=== PATIENT | male | born 1980 | race Caucasian/White ===

== ENCOUNTER 2019-10-04 20:00 | Outpatient (CLI) | payer OTHER, SELFPAY | END 2019-10-04 20:01 | disposition home or self-care (01) | LOC: SLEEP 10-05 10:09 | PROVIDERS: PCP Emergency Medicine Emergency Medical Services; Visit Provider Emergency Medicine Emergency Medical Services | DX: G47.33 Obstructive sleep apnea (adult) (pediatric) (principal) | CPT/HCPCS: 95810; 95811 ==

== ENCOUNTER → 2019-12-17 13:30 | Outpatient (BNVA) | payer OTHER, SELFPAY | PROVIDERS: PCP Emergency Medicine Emergency Medical Services; Visit Provider Nurse Practitioner Family | DX: Z11.8 Encounter for screening for other infectious and parasitic diseases (principal); Z20.828 Contact with and (suspected) exposure to other viral communicable diseases | CPT/HCPCS: 87635 ==

== ENCOUNTER 2022-08-26 09:36 | Emergency (ER) | payer OTHER, SELFPAY ==
[2022-08-26 10:20] VITALS: BP 135/94; PULSE 83; RESP 17; TEMP 36.5; O2SAT 97; BMI 41.1
--- NOTE | 2022-08-26 10:31 | XR_ITS ---
WS: [id number] Left hip, 2 views, AP pelvis, 08/26/2022 Clinical Data: hip pain Comparison: AP pelvis, 04/17/2018. Findings: No fractures or dislocations are seen. The left hip shows no erosion, sclerosis, narrowing or fragmen tation of the left femoral head. There is a small left acetabular lip. The right hip shows no erosion , sclerosis, narrowing or fragmentation of the right femoral head. There is a right acetabular lip. T he soft tissues are not remarkable. The adjacent pelvis is normal. XR/XR hip LT 2-3V wo/w pel* [id number] Impression: Negative pelvis and left hip. Tonnis classification: grade 1: sclerosis of femoral head and acetabulum or sli ght joint space narrowing or slight lipping at joint margins of both hips
--- NOTE | 2022-08-26 10:31 | XR_ITS ---
WS: [id number] Lumbar spine, 2 views, 08/26/2022 Clinical Data: back pain Comparison: None. Findings: No compression fractures or subluxation is seen. No disc space narrowing is seen. The transverse proc esses and SI joints are normal. There are clips in the right upper quadrant from a cholecystectomy. XR/XR lumbar spine 2-3V* [id number] Impression: Negative lumbar spine.
--- NOTE | 2022-08-26 10:32 | W.ED.EXTPRO ---
Documented by User: Haylie Howell, DERMATOLOGY SALES REPRESENTATIVE-C 08/26/22 12:27 HPI - Extremity Problem General: Chief complaint: Extremity Problem,Nontraumatic Stated complaint: Left hip and back pain Time Seen by Provider: 08/26/22 09:51 History of Present Illness: Patient reports that he started having low back pain and left hip pain on Tuesday. He reports he did not have any injuries he was not doing anything when it started. He reports it is very difficult to bend get up from a seated position or walk. He reports that his back is hurting significantly and he is having some numbness running down his upper thigh on his left side. He denies numbness or tingling in the groin, loss of bowel or bladder continence, nausea, vomiting, fever, chills, urinary symptoms. He states that he has a herniated disc in his neck that he is seeing a neurosurgeon at [facility] for and they are concerned he has thoracic outlet syndrome. He is not sure if that is connected but that has been ongoing for a year and this back and hip pain just started on Tuesday. Associated symptoms: Deny chest pain or fever(s) Review of Systems Const: Denies: fever(s) or chills Card: Denies: chest pain or palpitations Resp: Denies: dyspnea, productive cough or non-productive cough GI: Denies: abdominal pain, nausea or vomiting : Denies: flank pain, difficulty urinating or dysuria Musc: Reports: back pain and extremity pain Physical Exam Const: COMMON NORMALS: patient oriented x3 and alert OTHER: Patient is in obvious pain. Neck/C-Spine: COMMON NORMALS: no JVD Resp: COMMON NORMALS: normal respiratory effort, No use of accessory muscles and clear to auscultation bilaterally AUSCULTATION: clear to auscultation bilaterally Cardio: COMMON NORMALS: no JVD, regular rate, regular rhythm, S1 normal heart sound present and S2 normal heart sound present RATE: regular rate RHYTHM: regular rhythm HEART SOUNDS: S1 normal heart sound present and S2 normal heart sound present Back/Pelvis: OTHER: There is tenderness to palpation left lumbar paraspinal musculature. No vertebral point tenderness appreciated, no step-offs appreciated. Palpation of the paraspinal musculature reproduces pain complaint. Patient walks with a slow forward flexed gait Neuro: COMMON NORMALS: patient oriented x3 SENSORIUM/ORIENTATION: Yes alert Course Vital Signs: Vital signs: Vital Signs Temperature 97.7 F 08/26/22 10:20 Pulse Rate 83 08/26/22 10:20 Respiratory Rate 18 08/26/22 12:25 Blood Pressure 135/94 08/26/22 10:20 Pulse Oximetry 97 08/26/22 10:20 Oxygen Delivery Me thod 08/26/22 10:20 MDM - Extremity (Nontraumatic) Medical Decision Making Consider differentials muscle spasm, lumbar strain, herniated disc, cuada equina Patient does not have saddle paresthesia, loss of bowel or bladder continence. Less concern at this point for cuada equina. X-ray lumbar spine negative. Slight joint space narrowing or lipping at the joint margins of both hips. Patient reports some relief with the Robaxin but still has pain with movement. 1 dose of morphine provided prior to patient leaving. Advised him of possible benefits and side effects of the Robaxin prescription medication. Advised him not to drive or operate machinery after taking the medication. He has had Toradol and Robaxin in the ER so he should not take an NSAID or muscle relaxant for at least 8 hours after arriving home. Advised of conservative treatments at home. Follow-up with primary care provider next week. Return to the ER for new or worsening symptoms. Lab Data Radiology Impressions Hip/Pelvis X-Ray 08/26/22 10:31 Impression: Negative pelvis and left hip. Tonnis classification: grade 1: sclerosis of femoral head and acetabulum or slight joint space narrowing or slight lipping at joint margins of both hips Lumbar Spine X-Ray 08/26/22 10:31 Impression: Negative lumbar spine. Discharge Plan Discharge Patient Disposition: Home Clinical Impression: Muscle spasm Condition: Stable Prescriptions: New methocarbamol 750 mg tablet 750 mg PO Q8H PRN (Reason: muscle spasm) Qty: 10 0RF No Action cholecalciferol (vitamin D3) 50 mcg (2,000 unit) capsule 50 mcg PO DAILY fluoxetine 20 mg capsule 20 mg PO DAILY Discharge Orders: Discharge ED (Routine); Ordered 08/26/22 Ordered By: Haylie Howell Referrals: Rex Armstrong DO [Primary Care Provider] - Discharge Diet: Usual diet Discharge Activity: Limit activity as instructed Patient Instructions: Muscle Spasm (ED) Activity Restrictions/Additional Instructions: I recommend warm moist compresses and rest. No lifting x3 days. Utilize NSAIDs like ibuprofen and muscle relaxant medication every 8 hours as needed as prescribed. You had a dose in the ER today so do not take Robaxin/muscle relaxer for at least 8 hours. Do not take anything else that makes you sleepy with this medication. Do not drive after taking muscle relaxant medication. Follow-up with your primary care provider next week. Return to the ER as needed for new or worsening symptoms. Coding Level of Care Code ED Geek [employer] Agent for Chg Fwd Exam Expanded Problem Focused Documented by User: Kris Stokes DO 08/26/22 18:44 HPI - Extremity Problem General: Chief complaint: Extremity Problem,Nontraumatic Stated complaint: Left hip and back pain Time Seen by Provider: 08/26/22 09:51 Course Vital Signs: Vital signs: Vital Signs Temperature 97.7 F 08/26/22 10:20 Pulse Rate 83 08/26/22 10:20 Respiratory Rate 18 08/26/22 12:25 Blood Pressure 135/94 08/26/22 10:20 Pulse Oximetry 97 08/26/22 10:20 Oxygen Delivery Me thod 08/26/22 10:20 MDM - Extremity (Nontraumatic) Medical Decision Making Consider differentials muscle spasm, lumbar strain, herniated disc, cuada equina Patient does not have saddle paresthesia, loss of bowel or bladder continence. Less concern at this point for cuada equina. X-ray lumbar spine negative. Slight joint space narrowing or lipping at the joint margins of both hips. Patient reports some relief with the Robaxin but still has pain with movement. 1 dose of morphine provided prior to patient leaving. Advised him of possible benefits and side effects of the Robaxin prescription medication. Advised him not to drive or operate machinery after taking the medication. He has had Toradol and Robaxin in the ER so he should not take an NSAID or muscle relaxant for at least 8 hours after arriving home. Advised of conservative treatments at home. Follow-up with primary care provider next week. Return to the ER for new or worsening symptoms. Chart reviewed and patient discussed with midlevel. Agree with assessment and plan. Lab Data Radiology Impressions Hip/Pelvis X-Ray 08/26/22 10:31 Impression: Negative pelvis and left hip. Tonnis classification: grade 1: sclerosis of femoral head and acetabulum or slight joint space narrowing or slight lipping at joint margins of both hips Lumbar Spine X-Ray 08/26/22 10:31 Impression: Negative lumbar spine. Discharge Plan Discharge Patient Disposition: Home Clinical Impression: Muscle spasm Condition: Stable Prescriptions: New methocarbamol 750 mg tablet 750 mg PO Q8H PRN (Reason: muscle spasm) Qty: 10 0RF No Action cholecalciferol (vitamin D3) 50 mcg (2,000 unit) capsule 50 mcg PO DAILY fluoxetine 20 mg capsule 20 mg PO DAILY Discharge Orders: Discharge ED (Routine); Ordered 08/26/22 Ordered By: Haylie Howell Referrals: Rex Armstrong DO [Primary Care Provider] - Discharge Diet: Usual diet Discharge Activity: Limit activity as instructed Patient Instructions: Muscle Spasm (ED) Activity Restrictions/Additional Instructions: I recommend warm moist compresses and rest. No lifting x3 days. Utilize NSAIDs like ibuprofen and muscle relaxant medication every 8 hours as needed as prescribed. You had a dose in the ER today so do not take Robaxin/muscle relaxer for at least 8 hours. Do not take anything else that makes you sleepy with this medication. Do not drive after taking muscle relaxant medication. Follow-up with your primary care provider next week. Return to the ER as needed for new or worsening symptoms. Coding Level of Care Code ED [employer] Agent for Cathy Fwd Exam Expanded Problem Focused
[2022-08-26] MEDS: ketorolac 60 mg/2 mL INJ IM (10:39)
[2022-08-26] MEDS: methocarbamol 750 mg Tablet PO (11:21)
[2022-08-26 12:25] VITALS: RESP 18
[2022-08-26] MEDS: ondansetron 4 MG Tablet PO (12:25)
[2022-08-26] MEDS: morphine 4 mg/mL SDV 1 mL IM (12:25)
== END 2022-08-26 12:35 | disposition home or self-care (01) ==
PROVIDERS: Emergency Provider Nurse Practitioner Family; PCP Emergency Medicine Emergency Medical Services
DX: M62.838 Other muscle spasm (principal)
CPT/HCPCS: 72100; 73502; 96372; 99284; J1885; J2270; Q0162